=== PATIENT | male | born 1985 | race Caucasian/White ===

== ENCOUNTER 2018-07-21 10:01 | Emergency (ER) | payer MEDICAID ==
[2018-07-21] MEDS ORDERED: CLINDAMYCIN 150 MG CAP PO ONE (10:24)
--- NOTE | 2018-07-21 10:29 | Emergency Department Record ---
History of Present Illness - General Chief complaint: Facial Swelling Stated complaint: RT CHEEK SWELLED Time Seen by Provider: 07/21/18 10:06 Source: Patient Mode of Arrival: Ambulatory Limitations: No limitations - History of Present Illness Initial Comments: The patient is here due to waking up this AM with swelling over his R maxillary area. The patient has a hx of dental issues but has not had any problems until this AM. He denies any fever, pain, [place], or trouble swallowing. MD Complaint: Facial swelling Onset/Timin -: Hour(s) Exposure: Unknown Symptoms: Facial swelling Severity: Mild Treatment Prior to Arrival: None Previous Allergy History: None - Related Data Previous Rx's Medication Instructions Recorded Clindamycin HCl [Cleocin HCl] 300 mg PO QID #28 capsule 07/21/18 Allergies Allergy/AdvReac Type Severity Reaction Status Date / Time No Known Drug Allergies Allergy Verified 07/21/18 10:13 Travel Screening - Travel/Exposure Within Last 30 Days Have you traveled within the last 30 days?: No - Travel Symptoms Symptom Screening: None Review of Systems Constitutional: Denies: Chills, Fever Eyes: Denies: Eye discharge ENT: Denies: Congestion Respiratory: Denies: Cough, Dyspnea Past Medical History - SOCIAL HISTORY Smoking Status: Heavy tobacco smoker (>10/day) Alcohol Use: Occasional Drug Use: None - RESPIRATORY Hx Respiratory Disorders: No - CARDIOVASCULAR Hx Cardio Disorders: No - NEURO Hx Neuro Disorders: No - GI Hx GI Disorders: No - Hx Genitourinary Disorders: No - ENDOCRINE Hx Endocrine Disorders: No - MUSCULOSKELETAL Hx Musculoskeletal Disorders: No - PSYCH Hx Psych Problems: No - HEMATOLOGY/ONCOLOGY Hx Hematology/Oncology Disorders: No Family Medical History Any Significant Family History?: Yes Hx Heart Disease: Father Physical Exam - General General Appearance: Alert, Oriented x3, Cooperative, No acute distress - Head Head exam: Atraumatic, Normocephalic, Normal inspection - Eye Eye exam: Normal appearance, PERRL, EOMI. negative: Conjunctival injection - ENT ENT exam: negative: Normal exam (There is mild swelling over the R maxillary area with mild tenderness.) Teeth exam: Dental caries, Gingival enlargement (over the R upper molars. ), Other (There is fullness and mild tenderness to palpation at the gum line of teeth # 3 and 4 but no drainable abscess.) Throat exam: Normal inspection. negative: Tonsillar erythema, Tonsillar exudate - Neck Neck exam: Normal inspection, Full ROM. negative: Lymphadenopathy, Meningismus, Tenderness - Respiratory Respiratory exam: Normal lung sounds bilaterally. negative: Respiratory distress Course Vital Signs 07/21/18 10:03 Temperature 98.6 F Pulse Rate 78 Respiratory 16 Rate Blood Pressure 145/90 Pulse Ox 98 - Reevaluation(s) Reevaluation #1: I did discuss the need for oral Abx's and the need for dental evaluation and the patient understands the plan. 07/21/18 10:27 Disposition Disposition: Discharge Clinical Impression: Dental infection Disposition: Home, Self-Care Condition: (2) Stable Instructions: Dental Abscess (ED) Additional Instructions: Please use Tylenol or Motrin for pain and please continue the Clindamycin. Please see a Dentist tomorrow for further evaluation. Return to the ER for any worsening symptoms. Prescriptions: Clindamycin HCl [Cleocin HCl] 300 mg PO QID #28 capsule Forms: Patient Portal Access Time of Disposition: 10:29 Quality - Quality Measures Quality Measures: N/A - Blood Pressure Screening View Details: Yes Does Patient Have Any of the Following: No Blood Pressure Classification: Hypertensive Reading Systolic Measurement: 145 Diastolic Measurement: 90 Screening for High Blood Pressure: < First Hypertensive BP, F/U Documented > [[id number]] First Hypertensive Follow-up Interventions: Referral to alternative/primary care provider.
== END 2018-07-21 10:50 | disposition home or self-care (01) ==
LOC: ER 10:01
DX: K04.7 Periapical abscess without sinus (principal); F17.210 Nicotine dependence, cigarettes, uncomplicated
CPT/HCPCS: 99282